=== PATIENT | male | born 1955 | race Asian ===

== ENCOUNTER 2022-12-02 09:13 | Inpatient (IN) | payer OTHER, MEDICARE ==
[~2022-12-02] VITALS: Ht 170.2 cm; Wt 57.2 kg
[2022-12-02] VITALS (13 sets, daily range): BP systolic 88–149
[2022-12-02] MEDS ORDERED: NACL 0.9% 2,000 ML IV ONE (09:30)
[2022-12-02 10:07] LABS: HEMOGLOBIN 10.2 g/dL (14.0-18.0); LYMPHOCYTES # (AUTO) 0.7 K/uL (1.0-5.5); MONOCYTES # (AUTO) 0.2 K/uL (0.0-1.0); MONOCYTES % (AUTO) 4.6 % (1.7-9.3); NEUTROPHILS # (AUTO) 3.9 K/uL (1.8-7.7); RED CELL DISTRIBUTION WIDTH 15.9 % (9.0-15.0); WHITE BLOOD COUNT (AUTO) 4.9 K/uL (4.8-10.8)
[2022-12-02 10:13] LABS: BASOPHILS # (AUTO) 0.1 K/uL (0.0-0.2); BASOPHILS % (AUTO) 1.1 % (0.0-2.0); EOSINOPHILS % (AUTO) 0.2 % (0.0-4.0); HEMATOCRIT 30.9 % (36-54); LYMPHOCYTES % (AUTO) 14.6 % (20.5-51.5); MEAN CORPUSCULAR HEMOGLOBIN 25 pg (27-31); MEAN CORPUSCULAR HGB CONC 33 % (32-36); MEAN CORPUSCULAR VOLUME 75 fL (79.0-98.0); NEUTROPHILS % (AUTO) 79.5 % (40.0-70.0)
[2022-12-02 10:20] LABS: INR 1.2 (0.80-1.20)
[2022-12-02 10:28] LABS: PLATELET COUNT (AUTO) 76 K/uL (130-430)
[2022-12-02 10:31] LABS: ANION GAP 22 (5-15); CALCIUM 8.2 mg/dL (8.4-11.0); CHLORIDE 102 mmol/L (98-107); CREATININE 2.08 mg/dL (0.55-1.30); GFR AFRICAN AMERICAN 41 mL/min (>90); GLUCOSE 110 mg/dL (70-99); UREA NITROGEN, BLOOD 34 mg/dL (8-21)
[2022-12-02 10:38] LABS: ALANINE AMINOTRANSFERASE 14 U/L (12-78); ALBUMIN 2.8 g/dL (3.4-4.8); ASPARTATE AMINOTRANSFERASE 24 U/L (10-37); TOTAL BILIRUBIN 0.4 mg/dL (0.0-1.0)
[2022-12-02] MEDS ORDERED: NACL 0.9% 1,000 ML IV ONE (10:45)
[2022-12-02] MEDS ORDERED: cefTRIAXone 1 GM IVPB PREMIX 50 ML IV ONE (11:00)
[2022-12-02] MEDS ORDERED: NOREPINEPHRINE BITARTRATE 4 MG in NS 246 ML IV ONE (11:45)
[2022-12-02] MEDS ORDERED: NOREPINEPHRINE 4 MG/4 ML VIAL IV ONE (12:35)
[2022-12-02] MEDS: D5/0.45 NS 1,000 ML IV SCH (14:27)
[2022-12-02] MEDS ORDERED: POTASSIUM CHLORIDE 20 MEQ TAB.PRT.SR PO ONE (16:00)
[2022-12-02] MEDS ORDERED: PIPERACILLIN/TAZO 3.375/DEX-IS 50 ML IV SCH (18:00)
[2022-12-02] MEDS ORDERED: FINA5TAB3 PO (18:38)
[2022-12-02] MEDS ORDERED: DOCU-144 PO (18:38)
[2022-12-02] MEDS ORDERED: MEGE20TA3 PO (18:38)
[2022-12-02] MEDS ORDERED: MIDO10TA PO (18:38)
[2022-12-02] MEDS ORDERED: FLUC200T PO (18:38)
[2022-12-02] MEDS ORDERED: ENTE1TAB7 PO (18:38)
[2022-12-02] MEDS: MICAFUNGIN SODIUM 50 MG in NS 50 ML IV SCH (18:39)
[2022-12-02] MEDS ORDERED: ALBUTEROL SULFATE 0.083% 2.5 MG/3 ML VIAL.NEB INH PRN (19:15)
[2022-12-02] MEDS ORDERED: HYDROcodone/ACETAMIN 5-325 MG TAB (NORCO/ VICODIN) PO PRN (19:15)
[2022-12-02] MEDS ORDERED: NALOXONE HCL 0.4 MG/ML AMP (NARCAN) IVP PRN ×2 (19:15)
[2022-12-02] MEDS ORDERED: ONDANSETRON HCL 4 MG/2 ML VIAL IVP PRN (19:15)
[2022-12-02] MEDS ORDERED: LORazepam 2 MG/ML VIAL IVP PRN (19:15)
[2022-12-02] MEDS ORDERED: ACETAMINOPHEN 325 MG TABLET PO PRN (19:15)
[2022-12-02] MEDS ORDERED: HYDROcodone/ACETAMIN 10-325 MG TAB PO PRN (19:15)
[2022-12-02] MEDS ORDERED: IPRATROPIUM BROM 0.5 MG/2.5 ML VIAL.NEB (ATROVENT) INH PRN (19:15)
[2022-12-02] MEDS: DOCUSATE SODIUM 100 MG CAPSULE PO SCH (20:17)
[2022-12-02] MEDS: MEGESTROL ACETATE 40 MG TABLET PO SCH (20:18)
[2022-12-02] MEDS: MIDODRINE HCL 5 MG TABLET (PROAMATINE) PO SCH (20:18)
[2022-12-02] MEDS: MEROPENEM 500 MG in NS 50 ML IV SCH (21:49)
[2022-12-03] VITALS (24 sets, daily range): BP systolic 86–114
[2022-12-03] MEDS: D5/0.45 NS 1,000 ML IV SCH ×4 (00:29→21:41)
[2022-12-03 01:12] LABS: BILIRUBIN,URINE NEGATIVE (NEGATIVE); BLOOD, URINE 3+ (NEGATIVE); CLARITY/URINE SL CLOUDY (CLEAR); COLOR,URINE YELLOW (YELLOW); GLUCOSE,URINE NEGATIVE (NEGATIVE); KETONES,URINE NEGATIVE (NEGATIVE); LEUKOCYTE ESTERASE ,URINE NEGATIVE (NEGATIVE); NITRITE, URINE NEGATIVE (NEGATIVE); PROTEIN URINE 2+ (NEGATIVE); UROBILINOGEN,URINE 0.2 (0.2-1.0)
[2022-12-03 01:27] LABS: BACTERIA,URINE None Seen /HPF (None Seen); WBC,URINE 0-3 /HPF (0-3)
[2022-12-03 05:13] LABS: MEAN CORPUSCULAR HEMOGLOBIN 25 pg (27-31); MONOCYTES # (AUTO) 0.1 K/uL (0.0-1.0)
[2022-12-03] MEDS ORDERED: NOREPINEPHRINE BITARTRATE 4 MG in NS 246 ML IV PRN (05:30)
[2022-12-03] MEDS: MEROPENEM 500 MG in NS 50 ML IV SCH ×3 (05:44→21:10)
[2022-12-03 07:30] LABS: ALBUMIN 2.3 g/dL (3.4-4.8); CALCIUM 7.5 mg/dL (8.4-11.0); CREATININE 1.33 mg/dL (0.55-1.30); PHOSPHORUS 2.4 mg/dL (2.7-4.5); TOTAL BILIRUBIN 0.3 mg/dL (0.0-1.0)
[2022-12-03 08:27] LABS: BASOPHILS % (AUTO) 0.4 % (0.0-2.0); EOSINOPHILS % (AUTO) 0.5 % (0.0-4.0); HEMOGLOBIN 8.3 g/dL (14.0-18.0); LYMPHOCYTES # (AUTO) 0.5 K/uL (1.0-5.5); LYMPHOCYTES % (AUTO) 16.9 % (20.5-51.5); MEAN CORPUSCULAR HGB CONC 33 % (32-36); MEAN CORPUSCULAR VOLUME 75 fL (79.0-98.0); MONOCYTES % (AUTO) 2.5 % (1.7-9.3); NEUTROPHILS # (AUTO) 2.4 K/uL (1.8-7.7); NEUTROPHILS % (AUTO) 79.7 % (40.0-70.0); RED BLOOD CELL COUNT(AUTO) 3.33 MIL/uL (4.2-6.2); RED CELL DISTRIBUTION WIDTH 16.1 % (9.0-15.0)
[2022-12-03 08:29] LABS: C-REACTIVE PROTEIN QUANT 38.2 mg/dL (0-0.5)
[2022-12-03] MEDS: DOCUSATE SODIUM 100 MG CAPSULE PO SCH ×2 (08:38→21:00)
[2022-12-03] MEDS: MIDODRINE HCL 5 MG TABLET (PROAMATINE) PO SCH ×3 (08:46→21:09)
[2022-12-03] MEDS: FINASTERIDE 5 MG TABLET (PROSCAR) PO SCH (08:47)
[2022-12-03] MEDS: MEGESTROL ACETATE 40 MG TABLET PO SCH ×2 (08:47→21:09)
[2022-12-03] MEDS ORDERED: POTASSIUM CHLORIDE 20 MEQ TAB.PRT.SR PO ONE (09:15)
[2022-12-03 10:46] LABS: PLATELET COUNT (AUTO) 33 K/uL (130-430)
[2022-12-03 11:31] LABS: ERYTHROCYTE SEDIMENTATION RATE 103 MM/HR (0-15)
[2022-12-03] MEDS: ACETAMINOPHEN 325 MG TABLET PO PRN (11:47)
[2022-12-03] MEDS: VANCOMYCIN HCL ORAL SOLUTION 125 MG/5 ML, 150 ML PO SCH ×3 (12:50→21:09)
[2022-12-03] MEDS: MICAFUNGIN SODIUM 50 MG in NS 50 ML IV SCH (17:34)
[2022-12-04] VITALS: BP_SYST 119
[2022-12-04] MEDS: MEROPENEM 500 MG in NS 50 ML IV SCH ×3 (05:44→21:33)
[2022-12-04 07:40] LABS: BASOPHILS % (AUTO) 1.7 % (0.0-2.0); EOSINOPHILS % (AUTO) 2.3 % (0.0-4.0); HEMATOCRIT 24.8 % (36-54); HEMOGLOBIN 8.1 g/dL (14.0-18.0); LYMPHOCYTES # (AUTO) 0.5 K/uL (1.0-5.5); MEAN CORPUSCULAR HEMOGLOBIN 25 pg (27-31); MEAN CORPUSCULAR HGB CONC 33 % (32-36); MEAN CORPUSCULAR VOLUME 76 fL (79.0-98.0); MONOCYTES # (AUTO) 0.1 K/uL (0.0-1.0); MONOCYTES % (AUTO) 4.2 % (1.7-9.3); NEUTROPHILS # (AUTO) 1.4 K/uL (1.8-7.7); NEUTROPHILS % (AUTO) 68.8 % (40.0-70.0); RED BLOOD CELL COUNT(AUTO) 3.28 MIL/uL (4.2-6.2); RED CELL DISTRIBUTION WIDTH 15.9 % (9.0-15.0); RETICULOCYTE COUNT 0.8 % (0.5-1.5)
[2022-12-04 07:58] LABS: CREATININE 1.05 mg/dL (0.55-1.30); PHOSPHORUS 2.2 mg/dL (2.7-4.5)
[2022-12-04 08:33] VITALS: BP_SYST 99
[2022-12-04 08:34] LABS: C-REACTIVE PROTEIN QUANT 22.9 mg/dL (0-0.5)
[2022-12-04 09:03] LABS: TOTAL IRON BIND. CAPACITY 140 ug/dL (250-450)
[2022-12-04 09:53] LABS: PLATELET COUNT (AUTO) 34 K/uL (130-430)
[2022-12-04] MEDS: VANCOMYCIN HCL ORAL SOLUTION 125 MG/5 ML, 150 ML PO SCH ×4 (10:06→21:35)
[2022-12-04 10:07] LABS: ERYTHROCYTE SEDIMENTATION RATE > 130 MM/HR (0-15)
[2022-12-04] MEDS: MEGESTROL ACETATE 40 MG TABLET PO SCH ×2 (10:07→21:34)
[2022-12-04] MEDS: FINASTERIDE 5 MG TABLET (PROSCAR) PO SCH (10:07)
[2022-12-04] MEDS: DOCUSATE SODIUM 100 MG CAPSULE PO SCH ×2 (10:07→21:34)
[2022-12-04] MEDS: MIDODRINE HCL 5 MG TABLET (PROAMATINE) PO SCH ×3 (10:08→21:35)
[2022-12-04 10:49] LABS: INR 0.9 (0.80-1.20); PROTHROMBIN TIME 9.6 SECS (9.5-12.5)
[2022-12-04] MEDS ORDERED: K PHOS 15 MM in NS 250 ML IV ONE (11:00)
[2022-12-04 11:44] VITALS: BP_SYST 90
[2022-12-04] MEDS: FLUCONAZOLE 200 mg/ NS 100 ML IV SCH (13:09)
[2022-12-04] MEDS: NORMAL SALINE 5 ML DISP.SYRIN IVF SCH ×2 (14:08→21:35)
[2022-12-04 16:25] VITALS: BP_SYST 126
[2022-12-04 20:30] VITALS: BP_SYST 122
[2022-12-05 00:59] VITALS: BP_SYST 111
[2022-12-05 05:35] LABS: BASOPHILS # (AUTO) 0.1 K/uL (0.0-0.2); BASOPHILS % (AUTO) 3.3 % (0.0-2.0); EOSINOPHILS % (AUTO) 1.9 % (0.0-4.0); HEMATOCRIT 26.3 % (36-54); HEMOGLOBIN 8.8 g/dL (14.0-18.0); LYMPHOCYTES # (AUTO) 0.8 K/uL (1.0-5.5); LYMPHOCYTES % (AUTO) 38.2 % (20.5-51.5); MEAN CORPUSCULAR HEMOGLOBIN 25 pg (27-31); MEAN CORPUSCULAR HGB CONC 34 % (32-36); MEAN CORPUSCULAR VOLUME 74 fL (79.0-98.0); MONOCYTES # (AUTO) 0.1 K/uL (0.0-1.0); MONOCYTES % (AUTO) 7.3 % (1.7-9.3); NEUTROPHILS % (AUTO) 49.3 % (40.0-70.0); RED BLOOD CELL COUNT(AUTO) 3.55 MIL/uL (4.2-6.2); RED CELL DISTRIBUTION WIDTH 15.9 % (9.0-15.0); WHITE BLOOD COUNT (AUTO) 2.1 K/uL (4.8-10.8)
[2022-12-05 05:40] LABS: PLATELET COUNT (AUTO) 39 K/uL (130-430)
[2022-12-05 06:08] LABS: ALBUMIN 2.4 g/dL (3.4-4.8); C-REACTIVE PROTEIN QUANT 12.7 mg/dL (0-0.5); CALCIUM 8.3 mg/dL (8.4-11.0); CREATININE 1.05 mg/dL (0.55-1.30); TOTAL BILIRUBIN 0.5 mg/dL (0.0-1.0)
[2022-12-05] MEDS: NORMAL SALINE 5 ML DISP.SYRIN IVF SCH ×3 (06:44→21:53)
[2022-12-05] MEDS: MEROPENEM 500 MG in NS 50 ML IV SCH ×3 (06:44→21:52)
[2022-12-05 06:50] LABS: ERYTHROCYTE SEDIMENTATION RATE > 130 MM/HR (0-15)
[2022-12-05 08:05] VITALS: BP_SYST 91
[2022-12-05] MEDS: FINASTERIDE 5 MG TABLET (PROSCAR) PO SCH (08:29)
[2022-12-05] MEDS: MEGESTROL ACETATE 40 MG TABLET PO SCH ×2 (08:29→20:47)
[2022-12-05] MEDS: DOCUSATE SODIUM 100 MG CAPSULE PO SCH ×2 (08:30→20:46)
[2022-12-05] MEDS: VANCOMYCIN HCL ORAL SOLUTION 125 MG/5 ML, 150 ML PO SCH ×4 (08:30→20:46)
[2022-12-05] MEDS: MIDODRINE HCL 5 MG TABLET (PROAMATINE) PO SCH ×3 (08:32→20:47)
[2022-12-05 10:19] VITALS: BP_SYST 91
[2022-12-05] MEDS: FLUCONAZOLE 200 mg/ NS 100 ML IV SCH (10:46)
[2022-12-05 11:33] VITALS: BP_SYST 97
[2022-12-05 12:06] LABS: FOLATE (FOLIC ACID) 5.2 ng/mL (>3.0)
[2022-12-05 15:23] VITALS: BP_SYST 99
[2022-12-05 19:50] VITALS: BP_SYST 105
[2022-12-05] MEDS: ACETAMINOPHEN 325 MG TABLET PO PRN (22:02)
[2022-12-06 00:41] VITALS: BP_SYST 98
[2022-12-06] MEDS: MEROPENEM 500 MG in NS 50 ML IV SCH ×3 (05:24→21:46)
[2022-12-06] MEDS: NORMAL SALINE 5 ML DISP.SYRIN IVF SCH ×3 (05:25→21:46)
[2022-12-06 08:15] LABS: C-REACTIVE PROTEIN QUANT 6.2 mg/dL (0-0.5); CALCIUM 8.4 mg/dL (8.4-11.0)
[2022-12-06 08:20] VITALS: BP_SYST 102
[2022-12-06 08:31] LABS: HEMATOCRIT 27.6 % (36-54); HEMOGLOBIN 9.1 g/dL (14.0-18.0); MEAN CORPUSCULAR HEMOGLOBIN 24 pg (27-31); MEAN CORPUSCULAR HGB CONC 33 % (32-36); MEAN CORPUSCULAR VOLUME 74 fL (79.0-98.0); RED BLOOD CELL COUNT(AUTO) 3.74 MIL/uL (4.2-6.2); RED CELL DISTRIBUTION WIDTH 15.7 % (9.0-15.0)
[2022-12-06 09:02] LABS: PLATELET COUNT (AUTO) 49 K/uL (130-430); WHITE BLOOD COUNT (AUTO) 1.5 K/uL (4.8-10.8)
[2022-12-06 09:44] LABS: ERYTHROCYTE SEDIMENTATION RATE > 130 MM/HR (0-15)
[2022-12-06] MEDS: DOCUSATE SODIUM 100 MG CAPSULE PO SCH ×2 (09:51→21:45)
[2022-12-06] MEDS: MEGESTROL ACETATE 40 MG TABLET PO SCH ×2 (09:52→21:45)
[2022-12-06] MEDS: MIDODRINE HCL 5 MG TABLET (PROAMATINE) PO SCH ×3 (09:52→21:45)
[2022-12-06] MEDS: VANCOMYCIN HCL ORAL SOLUTION 125 MG/5 ML, 150 ML PO SCH ×4 (09:54→21:46)
[2022-12-06] MEDS: FLUCONAZOLE 200 mg/ NS 100 ML IV SCH (10:03)
[2022-12-06] MEDS: FINASTERIDE 5 MG TABLET (PROSCAR) PO SCH (10:03)
[2022-12-06 10:18] LABS: BASOPHILS % (MANUAL) 0 % (0-2); EOSINOPHILS % (MANUAL) 3 % (0-7); LYMPHOCYTES % (MANUAL) 42 % (20-46); MONOCYTES % (MANUAL) 12 % (0-11)
[2022-12-06 11:48] VITALS: BP_SYST 106
[2022-12-06 16:40] VITALS: BP_SYST 102
[2022-12-06] MEDS ORDERED: TBO-FILGRASTIM 480 MCG/0.8 ML SYRINGE SUBCUT ONE (18:00)
[2022-12-06 20:00] VITALS: BP_SYST 95
[2022-12-06] MEDS: ACETAMINOPHEN 325 MG TABLET PO PRN (21:45)
[2022-12-07] VITALS: BP_SYST 95
[2022-12-07] MEDS: NORMAL SALINE 5 ML DISP.SYRIN IVF SCH ×3 (06:06→22:48)
[2022-12-07] MEDS: MEROPENEM 500 MG in NS 50 ML IV SCH ×3 (06:06→22:47)
[2022-12-07 07:35] LABS: ERYTHROCYTE SEDIMENTATION RATE 110 MM/HR (0-15)
[2022-12-07 07:44] LABS: CALCIUM 8.6 mg/dL (8.4-11.0); CREATININE 1.03 mg/dL (0.55-1.30)
[2022-12-07 08:00] VITALS: BP_SYST 98
[2022-12-07 08:16] LABS: BASOPHILS % (AUTO) 0.5 % (0.0-2.0); EOSINOPHILS # (AUTO) 0.1 K/uL (0.0-0.4); EOSINOPHILS % (AUTO) 2.4 % (0.0-4.0); HEMATOCRIT 29.3 % (36-54); HEMOGLOBIN 9.4 g/dL (14.0-18.0); LYMPHOCYTES % (AUTO) 31.1 % (20.5-51.5); MEAN CORPUSCULAR HEMOGLOBIN 24 pg (27-31); MEAN CORPUSCULAR HGB CONC 32 % (32-36); MEAN CORPUSCULAR VOLUME 75 fL (79.0-98.0); MONOCYTES # (AUTO) 0.3 K/uL (0.0-1.0); MONOCYTES % (AUTO) 9.4 % (1.7-9.3); NEUTROPHILS # (AUTO) 1.7 K/uL (1.8-7.7); NEUTROPHILS % (AUTO) 56.6 % (40.0-70.0); PLATELET COUNT (AUTO) 66 K/uL (130-430); RED BLOOD CELL COUNT(AUTO) 3.93 MIL/uL (4.2-6.2); RED CELL DISTRIBUTION WIDTH 15.6 % (9.0-15.0); WHITE BLOOD COUNT (AUTO) 3.1 K/uL (4.8-10.8)
[2022-12-07] MEDS: MIDODRINE HCL 5 MG TABLET (PROAMATINE) PO SCH ×3 (09:42→20:40)
[2022-12-07] MEDS: FINASTERIDE 5 MG TABLET (PROSCAR) PO SCH (09:43)
[2022-12-07] MEDS: VANCOMYCIN HCL ORAL SOLUTION 125 MG/5 ML, 150 ML PO SCH ×4 (09:43→20:40)
[2022-12-07] MEDS: DOCUSATE SODIUM 100 MG CAPSULE PO SCH ×2 (09:43→20:40)
[2022-12-07] MEDS: MEGESTROL ACETATE 40 MG TABLET PO SCH ×2 (09:43→20:40)
[2022-12-07 11:33] VITALS: BP_SYST 99
[2022-12-07] MEDS: FLUCONAZOLE 200 mg/ NS 100 ML IV SCH (12:18)
[2022-12-07 16:00] VITALS: BP_SYST 100
[2022-12-07 20:00] VITALS: BP_SYST 123
[2022-12-08 00:15] VITALS: BP_SYST 108
[2022-12-08] MEDS: ACETAMINOPHEN 325 MG TABLET PO PRN (02:55)
[2022-12-08] MEDS: MEROPENEM 500 MG in NS 50 ML IV SCH (06:01)
[2022-12-08] MEDS: NORMAL SALINE 5 ML DISP.SYRIN IVF SCH ×3 (06:02→21:59)
[2022-12-08 06:11] LABS: ALBUMIN 2.7 g/dL (3.4-4.8); C-REACTIVE PROTEIN QUANT 4.5 mg/dL (0-0.5); CALCIUM 8.6 mg/dL (8.4-11.0); CREATININE 1.07 mg/dL (0.55-1.30); TOTAL BILIRUBIN 0.5 mg/dL (0.0-1.0)
[2022-12-08 07:46] VITALS: BP_SYST 108
[2022-12-08 07:53] LABS: BASOPHILS % (AUTO) 0.4 % (0.0-2.0); EOSINOPHILS # (AUTO) 0.1 K/uL (0.0-0.4); EOSINOPHILS % (AUTO) 2.3 % (0.0-4.0); HEMATOCRIT 27.6 % (36-54); HEMOGLOBIN 9.1 g/dL (14.0-18.0); LYMPHOCYTES # (AUTO) 0.9 K/uL (1.0-5.5); MEAN CORPUSCULAR HEMOGLOBIN 24 pg (27-31); MEAN CORPUSCULAR HGB CONC 33 % (32-36); MEAN CORPUSCULAR VOLUME 74 fL (79.0-98.0); MONOCYTES # (AUTO) 0.4 K/uL (0.0-1.0); MONOCYTES % (AUTO) 10.3 % (1.7-9.3); NEUTROPHILS # (AUTO) 2.2 K/uL (1.8-7.7); PLATELET COUNT (AUTO) 61 K/uL (130-430); RED BLOOD CELL COUNT(AUTO) 3.76 MIL/uL (4.2-6.2); RED CELL DISTRIBUTION WIDTH 15.7 % (9.0-15.0); WHITE BLOOD COUNT (AUTO) 3.6 K/uL (4.8-10.8)
[2022-12-08 08:00] VITALS: BP_SYST 109
[2022-12-08 08:27] LABS: ERYTHROCYTE SEDIMENTATION RATE 113 MM/HR (0-15)
[2022-12-08] MEDS: DOCUSATE SODIUM 100 MG CAPSULE PO SCH ×2 (09:00→21:58)
[2022-12-08] MEDS: VANCOMYCIN HCL ORAL SOLUTION 125 MG/5 ML, 150 ML PO SCH ×4 (10:26→21:58)
[2022-12-08] MEDS: MIDODRINE HCL 5 MG TABLET (PROAMATINE) PO SCH ×3 (10:27→21:59)
[2022-12-08] MEDS: MEGESTROL ACETATE 40 MG TABLET PO SCH ×2 (10:27→21:59)
[2022-12-08] MEDS: FINASTERIDE 5 MG TABLET (PROSCAR) PO SCH (10:27)
[2022-12-08] MEDS: FLUCONAZOLE 200 mg/ NS 100 ML IV SCH (11:49)
[2022-12-08 11:50] VITALS: BP_SYST 95
[2022-12-08 15:35] VITALS: BP_SYST 95
[2022-12-08 18:06] LABS: MYCOPLASMA PNEUMONIAE IgM <770 U/mL (0-769)
[2022-12-08 19:55] VITALS: BP_SYST 103
[2022-12-09 00:51] VITALS: BP_SYST 96
[2022-12-09] MEDS: NORMAL SALINE 5 ML DISP.SYRIN IVF SCH ×2 (06:03→13:59)
[2022-12-09 06:40] LABS: C-REACTIVE PROTEIN QUANT 5.2 mg/dL (0-0.5); CALCIUM 8.5 mg/dL (8.4-11.0); CREATININE 0.95 mg/dL (0.55-1.30)
[2022-12-09 07:51] LABS: BASOPHILS % (AUTO) 0.6 % (0.0-2.0); EOSINOPHILS # (AUTO) 0.1 K/uL (0.0-0.4); EOSINOPHILS % (AUTO) 2.1 % (0.0-4.0); HEMATOCRIT 27.5 % (36-54); HEMOGLOBIN 9.1 g/dL (14.0-18.0); LYMPHOCYTES # (AUTO) 0.9 K/uL (1.0-5.5); LYMPHOCYTES % (AUTO) 27.7 % (20.5-51.5); MEAN CORPUSCULAR HEMOGLOBIN 24 pg (27-31); MEAN CORPUSCULAR HGB CONC 33 % (32-36); MEAN CORPUSCULAR VOLUME 74 fL (79.0-98.0); MONOCYTES # (AUTO) 0.3 K/uL (0.0-1.0); MONOCYTES % (AUTO) 10.7 % (1.7-9.3); NEUTROPHILS # (AUTO) 1.8 K/uL (1.8-7.7); NEUTROPHILS % (AUTO) 58.9 % (40.0-70.0); PLATELET COUNT (AUTO) 68 K/uL (130-430); RED BLOOD CELL COUNT(AUTO) 3.72 MIL/uL (4.2-6.2); RED CELL DISTRIBUTION WIDTH 15.6 % (9.0-15.0); WHITE BLOOD COUNT (AUTO) 3.1 K/uL (4.8-10.8)
[2022-12-09 08:00] VITALS: BP_SYST 111
[2022-12-09 08:12] LABS: ERYTHROCYTE SEDIMENTATION RATE 100 MM/HR (0-15)
[2022-12-09] MEDS: MIDODRINE HCL 5 MG TABLET (PROAMATINE) PO SCH ×3 (08:36→21:36)
[2022-12-09] MEDS: VANCOMYCIN HCL ORAL SOLUTION 125 MG/5 ML, 150 ML PO SCH ×3 (08:36→18:16)
[2022-12-09] MEDS: MEGESTROL ACETATE 40 MG TABLET PO SCH ×2 (08:36→21:36)
[2022-12-09] MEDS: DOCUSATE SODIUM 100 MG CAPSULE PO SCH ×2 (08:36→21:36)
[2022-12-09] MEDS: FINASTERIDE 5 MG TABLET (PROSCAR) PO SCH (08:36)
[2022-12-09] MEDS: FLUCONAZOLE 200 mg/ NS 100 ML IV SCH (11:38)
[2022-12-09 18:15] VITALS: BP_SYST 116
[2022-12-09 18:50] VITALS: BP_SYST 114
[2022-12-09] MEDS ORDERED: ROCI2 IVPB (19:39)
[2022-12-09] MEDS ORDERED: VANC125C10 PO (19:39)
[2022-12-09] MEDS ORDERED: FLUC200T PO (19:39)
[2022-12-09 20:00] VITALS: BP_SYST 96
== END 2022-12-09 22:52 | DRG 871 ==
LOC: SED 09:13 → SIC 11:49 → STU 12-03 23:38 → SMU 12-04 23:35
PROVIDERS: ADMIT Preventive Medicine Preventive Medicine/Occupational Environmental Medicine; ATTEND Preventive Medicine Preventive Medicine/Occupational Environmental Medicine
PROC: 05HY33Z Insertion of Infusion Device into Upper Vein, Percutaneous Approach (ICD-10-PCS; principal; 2022-12-09)
PROC: B54NZZA Ultrasonography of Left Upper Extremity Veins, Guidance (ICD-10-PCS; 2022-12-09)
DX: A41.9 Sepsis, unspecified organism (principal); E43 Unspecified severe protein-calorie malnutrition; J18.9 Pneumonia, unspecified organism; R65.21 Severe sepsis with septic shock; C85.90 Non-Hodgkin lymphoma, unspecified, unspecified site; Z68.1 Body mass index [BMI] 19.9 or less, adult; A04.72 Enterocolitis due to Clostridium difficile, not specified as recurrent; B18.1 Chronic viral hepatitis B without delta-agent; D61.818 Other pancytopenia; D84.9 Immunodeficiency, unspecified; E87.1 Hypo-osmolality and hyponatremia; E87.20 Acidosis, unspecified; N17.9 Acute kidney failure, unspecified; K81.0 Acute cholecystitis; B96.89 Other specified bacterial agents as the cause of diseases classified elsewhere; E83.39 Other disorders of phosphorus metabolism; E83.51 Hypocalcemia; E87.6 Hypokalemia; E88.09 Other disorders of plasma-protein metabolism, not elsewhere classified; N28.89 Other specified disorders of kidney and ureter; Z90.49 Acquired absence of other specified parts of digestive tract; D69.6 Thrombocytopenia, unspecified; K82.A1 Gangrene of gallbladder in cholecystitis
CPT/HCPCS: 36415; 71045; 71250-TC; 76376; 76700-TC; 80048; 80053; 81000; 82272; 82607; 82728; 82746; 83540; 83550; 83605; 83735; 84100; 84484; 85007; 85025; 85027; 85044; 85379; 85384; 85610-TC; 85651-TC; 85730-TC; 86140; 86480; 86738; 87040; 87081; 87086; 87230-TC; 87305; 87449; 93005; 94760; 96361; 96365; 97112-GP; 97163-GP; 99291; G0378; J0696; J1447; J1450; J2185; J2543; J7050; J7060